=== PATIENT | male | born 1955 | race African-American/Black ===

== ENCOUNTER 2020-07-22 07:07 | Day surgery (SDC) | payer OTHER ==
[~2020-07-22] VITALS: Ht 172.7 cm; Wt 80.5 kg
--- NOTE | ~2020-07-22 | OP ---
PATIENT NAME: PAULINA PADILLA MEDICAL RECORD: [id number] :53 LOCATION:D.OPS ADMISSION DATE: SURGEON: ABNER FRANCISCO MD DATE OF OPERATION: 07/22/2020 PREOPERATIVE DIAGNOSES: 1. Fecal occult blood positivity. 2. Family history of colon cancer. POSTOPERATIVE DIAGNOSES: 1. Fecal occult blood positivity. 2. Family history of colon cancer. 3. No colon polyps or masses. 4. No evidence of bleeding. PROCEDURE PERFORMED: Total colonoscopy to cecum. SURGEON: Abner Francisco MD MASTER SHEET CLERK: None. BLOOD LOSS: Minimal. ANESTHESIA: IV sedation. COMPLICATIONS: None. The risks, possible complications, and alternatives of the procedure were explained to the patient. He elected to proceed. ENDOSCOPIC COURSE: The patient was conveyed to endoscopy suite electively on 07/22/2020. IV sedation was induced by the anesthesia staff. The patient was placed in the Jim position. A digital rectal examination was performed. The prostate was without nodules. A colonoscope was inserted through the anus. It was easily advanced to the cecum. The prep was excellent. I slowly withdrew the endoscope. I irrigated and aspirated extensively. I dragged the folds. The pullback was greater than 18-minute pullback. I utilized normal imaging as well as narrow band imaging. No colonic polyps or masses were noted. No diverticula were noted. A retroflexed view was obtained of the rectum. I then unretroflexed the scope and removed it under direct vision. I found no evidence of something that could be causing occult bleeding. I would recommend an EGD. The patient is ASA class II. He would be a candidate for the EGD to be performed on a GI Clinic day at the [facility]. Alternatively, it could be done here at the hospital. TRANSINT:[id number] Voice Confirmation ID: [id number] DOCUMENT ID: [id number] cc: Rosanne Donovan APN Sent to [facility]. OPERATIVE REPORT [id number] PAULINA PADILLA ROBERT MD CC: [id number] DICTATION DATE: 07/22/20 1141 DRAMATIC ARTS HISTORIAN: 07/22/20 1209 [address] [facility] [address] [place] [address]
--- NOTE | ~2020-07-22 | HP ---
PATIENT: PAULINA PADILLA MEDICAL RECORD: [id number] ACCOUNT: [id number] LOCATION:[place] : 53 ADMISSION DATE: 07/22/20 PCP: No PCP HISTORY AND PHYSICAL EXAMINATION HISTORY OF PRESENT ILLNESS: The patient has heme-positive stools. He is here for colonoscopy. The risks, possible complications, and alternatives of the procedure were explained to the patient. He elects to proceed. He has a family history of colon cancer. Also, he has occasional pain with bowel movements. He has not noted any black or bloody stools. No nausea, vomiting, diarrhea or constipation. He has lost a little over 10 pounds in the past year. PAST MEDICAL AND SURGICAL HISTORY: Gastroesophageal reflux and hypertension. SOCIAL HISTORY: Former smoker. MEDICATIONS AT THE LONGTERM: Lisinopril. ALLERGIES: No known drug allergies. REVIEW OF SYSTEMS: Negative for CVA or seizures. Negative for diabetes or thyroid problems. PHYSICAL EXAMINATION: GENERAL: The patient does not appear acutely ill. He does not appear chronically ill. VITAL SIGNS: Reviewed. HEENT: External ears appear normal. Extraocular movements are intact. NECK: Trachea is midline. CHEST: No intercostal retractions. PULMONARY: Nonlabored. No stridor. IMPRESSION: Fecal occult blood positivity. PLAN: Colonoscopy. TRANSINT:[id number] Voice Confirmation ID: [id number] DOCUMENT ID: [id number] cc: Rosanne Mcleod Sent to [facility] ALEKS FRANCISCO MD CC: [id number] DICTATION DATE: 07/22/20 1047 CERTIFIED TOWER CLIMBER: 07/22/20 [id number] [place] [address]
[2020-07-22 07:53] LABS: BASOPHILS 0.4 % (0-2); EOSINOPHILS 0.7 % (0-7); HEMATOCRIT 51.7 % (42.0-54.0); HEMOGLOBIN 17.5 g/dL (13.5-17.5); IMMATURE GRANULOCYTES 0.2 % (0-5); LYMPHOCYTE ABS# 2.18 10x3/uL (1.32-3.57); LYMPHOCYTES 38.4 % (15-50); MCH 31.4 pg (26.0-34.0); MCHC 33.8 g/dL (31.0-37.0); MCV 92.7 fL (80.0-100.0); MEAN PLATELET VOLUME 10.9 fL (7.4-10.4); NEUTROPHIL ABS# 2.86 10x3/uL (1.78-5.38); NEUTROPHILS 50.3 % (40-80); PLATELET COUNT 226 10x3/uL (130-400); RBC 5.58 10x6/uL (4.20-6.10); RDW 12.3 % (11.5-14.5); WBC 5.7 10x3/uL (4.8-10.8)
[2020-07-22 08:03] LABS: APTT 28.2 SECONDS (22.8-39.4); INR 1.1 (0.85-1.17); PROTIME 13.1 SECONDS (11.6-15.0)
[2020-07-22] MEDS ORDERED: LISINOPRIL20 MG PO (08:04)
[2020-07-22 08:08] LABS: ALBUMIN 4.3 g/dL (3.4-5.0); ANION GAP 15.3 mmol/L (8-16); BILIRUBIN - TOTAL 0.61 mg/dL (0.2-1.3); CALCIUM 9.5 mg/dL (8.5-10.1); CARBON DIOXIDE 25.4 mmol/L (21.0-32.0); CREATININE - SERUM 2.4 mg/dL (0.6-1.3); POTASSIUM - SERUM 4.7 mmol/L (3.5-5.1); PROTEIN - SERUM 8.6 g/dL (6.4-8.2)
[2020-07-22 08:10] VITALS: Ht 172.7 cm; Wt 80.5 kg
== END 2020-07-22 12:25 | disposition home or self-care (01) ==
LOC: D.OPS 07:07
PROVIDERS: Anesthesiology; ATTEND Surgery
DX: R19.5 Other fecal abnormalities (principal); Z80.0 Family history of malignant neoplasm of digestive organs; K21.9 Gastro-esophageal reflux disease without esophagitis; I10 Essential (primary) hypertension